=== PATIENT | female | born 1995 | race Caucasian/White ===

== ENCOUNTER 2022-11-30 13:38 | Observation (INO) | payer MEDICAID ==
[~2022-11-30] VITALS: Ht 160 cm; Wt 73.5 kg
[2022-11-30] MEDS ORDERED: PNV (15:46)
== END 2022-11-30 16:00 | disposition home or self-care (01) ==
LOC: 8 EST A/PP 13:38
PROVIDERS: ADMIT Specialist; ATTEND Specialist
DX: O62.9 Abnormality of forces of labor, unspecified (principal); Z3A.38 38 weeks gestation of pregnancy
CPT/HCPCS: 59025; G0378; 99281

== ENCOUNTER 2022-12-13 12:58 | Observation (INO) | payer MEDICAID, OTHER ==
[~2022-12-13] VITALS: Ht 160 cm; Wt 77.1 kg
[~2022-12-13 12:58] MED LIST: PNV
[2022-12-13 16:31] LABS: BASOPHILS % 0.3 % (0.0-2.0); EOSINOPHILS % 0.3 % (0.0-5.0); HEMATOCRIT. 34.5 % (36.0-48.0); HEMOGLOBIN. 11.5 g/dL (12.0-16.0); LYMPHOCYTES % 16.1 % (20.0-50.0); MEAN CORPUSCULAR HEMOGLOBIN 28.8 pg (28.0-32.0); MEAN CORPUSCULAR VOLUME 86.1 fL (81.0-99.0); MEAN PLATELET VOLUME 10.8 fl (7.4-10.4); MONOCYTES % 5.9 % (2.0-8.0); NEUTROPHILS % 77.4 % (40.0-76.0); PLATELET 219 x1000/uL (130-400); RED BLOOD CELL COUNT 4.01 mill/uL (4.2-5.4); RED CELL DISTRIBUTION WIDTH 15.1 % (11.6-14.6)
[2022-12-13 16:41] LABS: CLARITY URINE CLOUDY (CLEAR); COLOR URINE DARK YELLOW (YELLOW); KETONES URINE TRACE (NEGATIVE); LEUKOCYTE ESTERASE URINE 2+ (NEGATIVE); NITRITE URINE NEGATIVE (NEGATIVE); OCCULT BLOOD URINE 3+ (NEGATIVE); PROTEIN URINE 1+ (NEGATIVE); SPECIFIC GRAVITY URINE 1.033 (1.005-1.030)
[2022-12-13 17:01] LABS: CHLORIDE 109 mEq/L (98-107)
== END 2022-12-13 18:35 | disposition home or self-care (01) ==
LOC: 8 EST LDRP 12:58
PROVIDERS: ADMIT Specialist; ATTEND Specialist
DX: O62.9 Abnormality of forces of labor, unspecified (principal); Z3A.39 39 weeks gestation of pregnancy
CPT/HCPCS: 36415; 59025; 80053; 81003; 84550; 85025; 99281; G0378

== ENCOUNTER 2022-12-14 20:53 | Inpatient (IN) | payer OTHER ==
[~2022-12-14] VITALS: Ht 160 cm; Wt 77.1 kg
[2022-12-14] MEDS ORDERED: METHYLERGONOVINE MALEATE 0.2 MG/ML IM PRN (22:15)
[2022-12-14] MEDS ORDERED: BUTORPHANOL TARTRATE 2 MG/ML VIAL IV PRN (22:15)
[2022-12-14] MEDS ORDERED: CARBOPROST TROMETHAMINE 250 MCG/ML AMPUL IM PRN (22:15)
[2022-12-14] MEDS ORDERED: MISOPROSTOL 100MCG TABLET VG SCH (22:15)
[2022-12-14] MEDS ORDERED: LIDOCAINE HCL 1% 20ML VIAL (Pyxis) INJ INFIL SCH (22:15)
[2022-12-14] MEDS ORDERED: NALOXONE HCL 0.4 MG/ML 1ML VIAL IM PRN (22:15)
[2022-12-14] MEDS: LACTATED RINGERS 1,000 ML IV SCH (22:31)
[2022-12-14 23:17] LABS: CLARITY URINE CLEAR (CLEAR); COLOR URINE YELLOW (YELLOW); KETONES URINE TRACE (NEGATIVE); LEUKOCYTE ESTERASE URINE TRACE (NEGATIVE); NITRITE URINE NEGATIVE (NEGATIVE); OCCULT BLOOD URINE 1+ (NEGATIVE); PH URINE 5.5 (4.5-8.0); PROTEIN URINE 1+ (NEGATIVE); SPECIFIC GRAVITY URINE 1.026 (1.005-1.030)
[2022-12-14] MEDS ORDERED: PENICILLIN G POTASSIUM 5 MMU in DEXT 5% WATER 100 ML IV SCH (23:30)
[2022-12-14 23:32] LABS: *AMPHETAMINES SCREEN URINE NEGATIVE (NEGATIVE); *BARBITURATES SCREEN URINE NEGATIVE (NEGATIVE); *BENZODIAZEPINES SCREEN URINE NEGATIVE (NEGATIVE); *COCAINE SCREEN URINE NEGATIVE (NEGATIVE); CANNABINOID URINE SCREEN NEGATIVE (NEGATIVE); METHADONE URINE SCREEN NEGATIVE (NEGATIVE); OPIATES URINE SCREEN NEGATIVE (NEGATIVE); PHENCYCLIDINE URINE SCREEN NEGATIVE (NEGATIVE)
[2022-12-14 23:36] LABS: BASOPHILS % 0.1 % (0.0-2.0); EOSINOPHILS % 0.4 % (0.0-5.0); HEMATOCRIT. 36.1 % (36.0-48.0); HEMOGLOBIN. 12.2 g/dL (12.0-16.0); LYMPHOCYTES % 18.1 % (20.0-50.0); MEAN CORPUSCULAR HEMOGLOBIN 28.6 pg (28.0-32.0); MEAN CORPUSCULAR VOLUME 84.4 fL (81.0-99.0); MEAN PLATELET VOLUME 11.1 fl (7.4-10.4); MONOCYTES % 6.2 % (2.0-8.0); NEUTROPHILS % 75.2 % (40.0-76.0); PLATELET 256 x1000/uL (130-400); RED BLOOD CELL COUNT 4.27 mill/uL (4.2-5.4); RED CELL DISTRIBUTION WIDTH 15.2 % (11.6-14.6)
[2022-12-15 02:08] LABS: HEPATITIS B SURFACE ANTIGEN NEGATIVE
[2022-12-15] MEDS: LACTATED RINGERS 1,000 ML IV SCH ×3 (02:13→14:02)
[2022-12-15 02:24] LABS: INR 0.9; PARTIAL THROMBOPLASTIN TIME 30.3 sec (23.4-31.0); PROTHROMBIN TIME 9.8 sec (9.6-11.0)
[2022-12-15] MEDS: PENICILLIN G POTASSIUM 2.5 MMU in DEXTROSE 5% WATER 50 ML IV SCH ×4 (03:17→15:16)
[2022-12-15] MEDS ORDERED: PENICILLIN G POTASSIUM 2.5 MMU in DEXTROSE 5% WATER 50 ML IV SCH (04:30)
[2022-12-15] MEDS ORDERED: ROPIVACAINE HCL/PF EPIDURAL 200 ML EPI SCH (05:15)
[2022-12-15] MEDS: OXYTOCIN 30 UNITS/500ML NS PMX 500 ML IV SCH ×2 (09:21→18:26)
[2022-12-15] MEDS ORDERED: FENTANYL CITRATE/PF 50MCG/ML 2ML VIAL ONE (12:54)
[2022-12-15] MEDS ORDERED: MINERAL OIL 30ML BOTTLE PO NR (17:30)
[2022-12-15] MEDS ORDERED: GLYCERIN/WITCH HAZEL LEAF MEDICATED PAD TOP PRN (18:30)
[2022-12-15] MEDS ORDERED: METHYLERGONOVINE MALEATE 0.2 MG/ML IM PRN (18:30)
[2022-12-15] MEDS ORDERED: BISACODYL 10MG SUPP PR PRN (18:30)
[2022-12-15] MEDS ORDERED: IBUPROFEN 400MG TABLET PO PRN (18:30)
[2022-12-15] MEDS ORDERED: LANOLIN OINT 7GM TUBE TOP PRN (18:30)
[2022-12-15] MEDS ORDERED: BENZOCAINE/LANOLIN/ALOE VERA SPRAY TOP PRN (18:30)
[2022-12-15] MEDS ORDERED: HEMORRHOIDAL SUPP PR PRN (18:30)
[2022-12-15] MEDS ORDERED: DIPHENHYDRAMINE 25MG CAPSULE PO PRN (18:30)
[2022-12-15] MEDS ORDERED: OXYTOCIN 30 UNITS/500ML NS PMX 500 ML IV SCH (18:30)
[2022-12-15] MEDS ORDERED: ACETAMINOPHEN WITH CODEINE 300/30MG TABLET PO PRN (18:30)
[2022-12-15] MEDS: IBUPROFEN 800MG TABLET PO PRN (19:47)
[2022-12-15] MEDS ORDERED: DOCUSATE SODIUM 100MG CAPSULE PO SCH (21:00)
[2022-12-15 23:12] VITALS: BP 128/68
[2022-12-16 05:09] LABS: HIV SCREEN 4G Non Reactive (Non Reactive)
[2022-12-16 06:00] VITALS: BP 101/55
[2022-12-16 06:42] LABS: BASOPHILS % 0.3 % (0.0-2.0); EOSINOPHILS % 0.6 % (0.0-5.0); HEMATOCRIT. 26.3 % (36.0-48.0); HEMOGLOBIN. 8.9 g/dL (12.0-16.0); LYMPHOCYTES % 17.3 % (20.0-50.0); MEAN CORPUSCULAR HEMOGLOBIN 28.6 pg (28.0-32.0); MEAN CORPUSCULAR VOLUME 84.6 fL (81.0-99.0); MEAN PLATELET VOLUME 10.3 fl (7.4-10.4); MONOCYTES % 5.4 % (2.0-8.0); NEUTROPHILS % 76.4 % (40.0-76.0); PLATELET 186 x1000/uL (130-400); RED BLOOD CELL COUNT 3.11 mill/uL (4.2-5.4); RED CELL DISTRIBUTION WIDTH 15.1 % (11.6-14.6)
[2022-12-16] MEDS: SIMETHICONE 80MG TABLET CHEW PO SCH ×5 (08:00→21:05)
[2022-12-16] MEDS: IBUPROFEN 800MG TABLET PO PRN ×2 (09:29→21:06)
[2022-12-16] MEDS: FERROUS SULFATE 325MG TABLET PO SCH ×3 (09:30→17:30)
[2022-12-16] MEDS: PRENATAL VIT/FE FUMARATE/FA TABLET PO SCH (09:30)
[2022-12-16 10:30] VITALS: BP 128/70
[2022-12-16 15:00] VITALS: BP 122/77
[2022-12-16 20:00] VITALS: BP 101/63
[2022-12-17 04:00] VITALS: BP 114/69
[2022-12-17] MEDS ORDERED: FERR-63 PO (07:52)
[2022-12-17] MEDS ORDERED: IBUP-2030 PO (07:52)
[2022-12-17 08:00] VITALS: BP 104/68
[2022-12-17] MEDS: FERROUS SULFATE 325MG TABLET PO SCH (08:38)
[2022-12-17] MEDS: SIMETHICONE 80MG TABLET CHEW PO SCH (08:38)
[2022-12-17] MEDS: PRENATAL VIT/FE FUMARATE/FA TABLET PO SCH (08:38)
[2022-12-17 15:59] VITALS: BP 111/72
== END 2022-12-17 17:50 | disposition home or self-care (01) | DRG 542 ==
LOC: 8 EST LDRP 20:53 → OBSVTOIN 20:53 → 8EST 12-15 21:02
PROVIDERS: ADMIT Specialist; ATTEND Specialist
PROC: 10E0XZZ Delivery of Products of Conception, External Approach (ICD-10-PCS; principal; 2022-12-15)
PROC: 0DQR0ZZ Repair Anal Sphincter, Open Approach (ICD-10-PCS; 2022-12-15)
PROC: 0W8NXZZ Division of Female Perineum, External Approach (ICD-10-PCS; 2022-12-15)
PROC: 3E0R3BZ Introduction of Anesthetic Agent into Spinal Canal, Percutaneous Approach (ICD-10-PCS; 2022-12-15)
PROC: 00HU33Z Insertion of Infusion Device into Spinal Canal, Percutaneous Approach (ICD-10-PCS; 2022-12-15)
DX: O42.02 Full-term premature rupture of membranes, onset of labor within 24 hours of rupture (principal); Z37.0 Single live birth; D62 Acute posthemorrhagic anemia; O70.20 Third degree perineal laceration during delivery, unspecified; Z3A.39 39 weeks gestation of pregnancy; O90.81 Anemia of the puerperium; Z20.822 Contact with and (suspected) exposure to COVID-19
CPT/HCPCS: 36415; 80305; 81003; 85025; 86592; 86762; 86850; 86900; 87340; 87389; 87426; 99281; G0378; J0595; J2540; J2795; J3010; J3490; J7060; J2590